=== PATIENT | female | born 1945 | race Caucasian/White ===

== ENCOUNTER → 2017-06-19 | Outpatient (CLI) | payer MEDICARE ==
[~2017-06-19] MED LIST: ASPIRIN81 M1 PO; CARDIZEM CD120 MG PO; CLOBEX; COQ10 PO; DILTIAZEM120 MG PO; MASON NATURAL1200 MG PO; MULTI-DAY VITAM1 TAB PO; PLAQUENIL200 MG PO; RED RICE YEAST PO; TIMOLOL; VAGIFEM10 MCG PO; VITAMIN B 12; VITAMIN D PO; [UNRECOGNIZED DRUG - OTHER] PO
[2017-06-19 11:58] LABS: CREATININE 1.65 mg/dL (0.55-1.02); POTASSIUM 3.9 mmol/L (3.5-5.1)
== END | disposition home or self-care (01) ==
LOC: LAB 10:54
DX: R74.8 Abnormal levels of other serum enzymes (principal)

== ENCOUNTER → 2017-06-22 | Outpatient (CLI) | payer MEDICARE ==
[2017-06-22 14:26] LABS: BILIRUBIN NEGATIVE (NEGATIVE); BLOOD NEGATIVE (NEGATIVE); CLARITY CLEAR (CLEAR); COLOR YELLOW (YELLOW); GLUCOSE NEGATIVE (NEGATIVE); KETONE TRACE (NEGATIVE); LEUKO ESTERASE 1+ (NEGATIVE); NITRITE NEGATIVE (NEGATIVE); PH 5.5 (5.0-9.0); UROBILINOGEN 0.2 E.U./dl (0.2-1.0)
[2017-06-22 14:36] LABS: BACTERIA 1+; WBC 16-20 wbc/hpf (0-5)
[2017-06-22 14:52] LABS: CREATININE 1.55 mg/dL (0.55-1.02)
== END ==
LOC: LAB 13:56 → US 15:00
DX: N18.3 Chronic kidney disease, stage 3 (moderate) (principal); R79.89 Other specified abnormal findings of blood chemistry; N32.89 Other specified disorders of bladder; N28.1 Cyst of kidney, acquired; Z79.899 Other long term (current) drug therapy

== ENCOUNTER → 2017-08-21 | Outpatient (CLI) | payer MEDICARE ==
[2017-08-21 09:12] LABS: BASO # 0.1 10*3/uL (0.0-0.1); BASO % 1.3 % (0.0-1.0); EOS # 0.5 10*3/uL (0.0-0.4); HEMATOCRIT 35.6 % (37.0-47.0); HEMOGLOBIN 11.5 g/dl (12.0-16.0); LYMPH # 1.8 10*3/uL (1.3-4.4); LYMPH % 25.8 % (27.0-41.0); MEAN CELL VOLUME 86.6 fl (81.0-99.0); MEAN CORPUSCULAR HGB CONC 32.3 g/dl (33.0-37.0); MEAN PLATELET VOLUME 9.7 fl (9.6-12.3); MONO # 0.6 10*3/uL (0.1-1.0); MONO % 8.6 % (3.0-9.0); NEUT # 3.8 10*3/uL (2.3-7.9); PLATELET COUNT AUTOMATED 276 10*3/uL (130-400); RED BLOOD COUNT 4.11 10*6/uL (4.10-5.10); RED CELL DISTRI WIDTH 14.4 % (0-14.5); WHITE BLOOD COUNT 6.8 10*3/uL (4.8-10.8)
[2017-08-21 09:38] LABS: CREATININE 1.4 mg/dL (0.55-1.02); POTASSIUM 3.8 mmol/L (3.5-5.1)
[2017-08-21 09:55] LABS: FREE T4 0.93 ng/dl (0.76-1.46)
[2017-08-21 10:01] LABS: PTH INTACT 67.6 pg/mL (14.0-72.0); VITAMIN D, 25-HYDROXY 55.2 ng/mL (30-100)
== END | disposition home or self-care (01) ==
LOC: LAB 08:42
PROVIDERS: Internal Medicine Nephrology; Nurse Practitioner Primary Care
DX: E78.2 Mixed hyperlipidemia (principal); D64.9 Anemia, unspecified; N18.3 Chronic kidney disease, stage 3 (moderate); E55.9 Vitamin D deficiency, unspecified

== ENCOUNTER → 2018-03-29 | Outpatient (CLI) | payer MEDICARE ==
[2018-03-29 15:52] LABS: CREATININE 1.53 mg/dL (0.55-1.02); POTASSIUM 4.7 mmol/L (3.5-5.1)
== END | disposition home or self-care (01) ==
LOC: LAB 15:08
PROVIDERS: Internal Medicine Nephrology
DX: N17.9 Acute kidney failure, unspecified (principal); N18.9 Chronic kidney disease, unspecified

== ENCOUNTER → 2024-03-04 | Outpatient (CLI) | payer MEDICARE ==
[2024-03-04 13:35] LABS: POTASSIUM 4.6 mmol/L (3.4-5.1)
== END | disposition home or self-care (01) ==
LOC: LAB 08:58
PROVIDERS: ATTEND Internal Medicine Interventional Cardiology
DX: E78.2 Mixed hyperlipidemia (principal); I1A.0 Resistant hypertension; Z78.9 Other specified health status